=== PATIENT | male | born 1965 | race Caucasian/White ===

== ENCOUNTER 2017-05-07 17:41 | Emergency (ER) | payer MEDICAID, OTHER ==
[~2017-05-07] VITALS: Ht 172.7 cm; Wt 81.2 kg
[2017-05-07 17:45] VITALS: Ht 172.7 cm; Wt 81.2 kg
[2017-05-07] MEDS ORDERED: OXYMETAZOLINE 0.05% 15 ML NAS SPRAY NASAL ONE (19:30)
[2017-05-07] MEDS ORDERED: NICARDipine HCL 30 MG CAPSULE PO ONE ×2 (20:00→21:30)
[2017-05-07] MEDS ORDERED: AMLO-147 PO (21:13)
--- NOTE | 2017-05-07 21:20 | ERD ---
ER Documentation Chief Complaint Chief Complaint epistaxis yesterday and today, resolved now HPI This 52-year-old male presents for nosebleed that began yesterday while he was resting. Resolved overnight but then beginning urine today in the afternoon. He has not been able to stop the bleeding has been packing it himself. Blood pressure was noted to be very high in triage patient states that he has no diagnosis of hypertension. He does not currently have a primary care physician. He is pending [facility] approval. ROS All systems reviewed and are negative except as per history of present illness. 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 Head: Atraumatic Eyes: Normal Conjunctiva ENT: Normal External Ears, Nose and Mouth. Left nare with small amount of continuous bleeding, right nare has no blood in it. Posterior oropharynx with slight bleeding. Neck: Full range of motion.. No JVD. Resp: Clear to auscultation bilaterally Cardio: Regular rate and rhythm, no murmurs Abd: Soft, non tender, non distended. Normal bowel sounds Skin: No petechiae or rashes Back: No midline or flank tenderness Ext: No cyanosis, or edema Neur: Awake and alert and oriented 3, no focal deficits Psych: Normal Mood and Affect Results 24 hrs Current Medications Medications (Trade) Dose Ordered Sig/Ronny Route PRN Reason Start Time Stop Time Status Last Admin Dose Admin Oxymetazoline HCl (Afrin [place]) 2 spray ONCE ONCE NASAL 05/07/17 19:30 12/17/17 19:31 DC Nicardipine HCl (Cardene) 30 mg ONCE ONCE PO 05/07/17 20:00 05/07/17 20:01 DC 05/07/17 19:52 Nicardipine HCl (Cardene) 30 mg ONCE ONCE PO 05/07/17 21:30 05/07/17 21:30 DC Amlodipine Besylate (Norvasc) 10 mg ONCE ONCE PO 05/07/17 21:30 05/07/17 21:31 UNV Procedures/MDM Severe hypertension in a 52-year-old male with a nosebleed. We will give him a nicardipine tab to lower the blood pressure which over the next 45 minutes did lower it to an acceptable level. His blood pressure was controlled at the nasal clamp taken off his nose had him blow his nose and use Afrin. This did need to cessation of bleeding. EKG was performed to look for any cardiac electrical abnormalities. Patient had a completely normal EKG. He is foregoing laboratory work at this time. Going to discharge her with 10 mg of amlodipine daily and instructions to see a doctor within the next couple of days to get laboratories to assess his renal function as well. I have given a list of low-cost community clinics pending his insurance and told that we will be definitely be worth it to see a doctor sooner than later. Also instructed him to buy a blood pressure cuff and keep a log of his blood pressure throughout the day. EKG interpretation: Normal sinus rhythm rate of 77, normal axis, no ST or T- wave changes concerning for acute ischemia. Local care time greater than 35 minutes: This includes treatment of hypertensive emergency with difficult to control hemorrhage from his nose, use of fast acting vasoactive medication nicardipine to lower blood pressure, multiple visits patient's bedside to reassess his status, control of epistaxis, EKG reviewed, discussion with patient and . This does not include any billable procedures Departure Diagnosis: Primary Impression: Hypertensive emergency Additional Impression: Epistaxis Condition: Stable Patient Instructions: Epistaxis (Adult), Hypertension, New (Begin Treatment) Referrals: COMMUNITY CLINICS YOU HAVE RECEIVED A MEDICAL SCREENING EXAM AND THE RESULTS INDICATE THAT YOU DO NOT HAVE A CONDITION THAT REQUIRES URGENT TREATMENT IN THE EMERGENCY DEPARTMENT. FURTHER EVALUATION AND TREATMENT OF YOUR CONDITION CAN WAIT UNTIL YOU ARE SEEN IN YOUR DOCTORS OFFICE WITHIN THE NEXT 1-2 DAYS. IT IS YOUR RESPONSIBILITY TO MAKE AN APPOINTMENT FOR FOLOW-UP CARE. IF YOU HAVE A PRIMARY DOCTOR --you should call your primary doctor and schedule an appointment IF YOU DO NOT HAVE A PRIMARY DOCTOR YOU CAN CALL OUR PHYSICIAN REFERRAL HOTLINE AT IF YOU CAN NOT AFFORD TO SEE A PHYSICIAN YOU CAN CHOSE FROM THE FOLLOWING [facility] [address] [facility] [address] [facility] [facility] [address] [facility] [address] [facility]. [facility] [address] [facility]. [address] Additional Instructions: Llame al doctor MAANA y awa christie PAT PARA DENTRO DE 1-2 ZHU.Dgale a la secretaria que nosotros le instruimos hacer esta pat.Avise o llame si faust condicin se empeora antes de la pat. Regresa aqui si peor o no mejor. MASON GUTIERREZ DO May 07, 2017 21:20
[2017-05-07] MEDS ORDERED: AMLODIPINE 10 MG TAB PO ONE (21:30)
[2017-05-07 21:52] VITALS: BP 140/94; PULSE 82; RESP 16
== END 2017-05-07 21:54 | disposition home or self-care (01) ==
LOC: E/R 17:41
DX: I16.1 Hypertensive emergency (principal); I10 Essential (primary) hypertension
CPT/HCPCS: 93005; Z7502; Z7610